=== PATIENT | female | born 1930 | race Caucasian/White ===

== ENCOUNTER 2018-03-22 19:23 | Inpatient (IN) | payer OTHER ==
--- OUTSIDE RECORDS SUMMARY | 2018-03-22 19:26 | XMS REPORT | Clinical Summary ---
:1930 Author Organization [facility] Address [address] [place] [address] Care Team Providers Name Role Phone Huber Multani MD Primary Care Provider Allergies Active Allergy Reactions Severity Noted Date Comments Codeine 06/15/2017 No pain medication Medications Medication Sig Dispensed Refills Start Date End Date Status warfarin (COUMADIN) 2.5 Take 2.5 mg by 0 Active MG tablet mouth daily. carvedilol (COREG) 12.5 Take 12.5 mg by 0 Active MG tablet mouth 2 (two) times a day with meals. losartan (COZAAR) 50 MG Take 50 mg by 0 Active tablet mouth daily. multivitamin with Take 1 tablet by 0 Active minerals tablet mouth daily. Active Problems Problem Noted Date Essential hypertension 06/15/2017 Abdominal aortic aneurysm (AAA) without rupture 06/15/2017 Chronic atrial fibrillation 06/15/2017 Encounters Date Type Specialty Care Team Description 06/15/2017 Office Visit Cardiology Bryon Ro MD Abdominal aortic aneurysm (AAA) without rupture (Primary Dx); Essential hypertension; Chronic atrial fibrillation after 03/21/2017 Social History Tobacco Use Types Packs/Day Years Used Date Former Smoker Cigarettes Smokeless Tobacco: Never Used Comments: quit 40yrs ago Alcohol Use Drinks/Week oz/Week Comments No Sex Assigned at Date Recorded Not on file Job Start Date Occupation Industry Not on file Not on file Not on file Travel History Travel Start Travel End No recent travel history available. Last Filed Vital Signs Vital Sign Reading Time Taken Blood Pressure 213/84 06/15/2017 2:52 PM CDT Pulse 67 06/15/2017 2:52 PM CDT Temperature - - Respiratory Rate - - Oxygen Saturation - - Inhaled Oxygen Concentration - - Weight 62.6 kg (138 lb) 06/15/2017 2:52 PM CDT Height - - Body Mass Index - - Plan of Treatment Health Maintenance Due Date Last Done Comments SHINGLES VACCINES (1 of 2) 07/04/1979 PNEUMOCOCCAL POLYSACCHARIDE VACCINE AGE 65 AND OVER 1994 PNEUMOCOCCAL-13 1994 INFLUENZA VACCINE 10/13/2017 Procedures Procedure Name Priority Date/Time Associated Diagnosis Comments ECG 12-LEAD Routine 06/15/2017 1:58 PM Essential hypertension Results for this CDT procedure are in the results section. after 03/21/2017 Results ECG 12 lead (06/15/2017 1:58 PM CDT) Ventricular rate 66 [facility] Atrial rate 68 [facility] QRSD interval 78 [facility] QT interval 408 [facility] QTC interval 427 [facility] QRS axis 1 -75 [facility] T wave axis 81 [facility] EKG impression Atrial fibrillation-Left axis [facility] deviation-Anteroseptal infarct , age undetermined-Abnormal ECG-No previous ECGs available- Performing Organization Address City/State/Zipcode Phone Number [facility] [address] [place] [address] after 03/21/2017 Insurance Payer Benefit Plan / Group Subscriber ID Type Phone Address MEDICARE MEDICARE PART A AND B xxxxxxxxxx Medicare [place], [place] Advance Directives Patient has advance care planning documents on file. For more information, please contact:Johnathon Hernandez[address] [place] [address]
[2018-03-22] MEDS ORDERED: ACETAMINOPHEN 500 MG TAB PO PRN (20:05)
[2018-03-22] MEDS ORDERED: DIPHENHYDRAMINE 25 MG TAB/CAP PO PRN (20:05)
[2018-03-22] MEDS ORDERED: PANTOPRAZOLE 40 MG INJ IVP ONE (20:06)
[2018-03-22] MEDS ORDERED: SODIUM CHLORIDE 0.9% 10ML INJ IV PRN (20:06)
[2018-03-22 21:02] LABS: Absolute Lymphocytes (CBC) 2.1 K/uL (0.7-4.9); Absolute Monocytes 0.6 K/uL (0.1-1.3); Absolute Neutrophil 1.8 K/uL (1.8-8.0); Basophils % 0.8 % (0-1.3); Eosinophils % 4.2 % (0-4.4); Hematocrit 24.1 % (36.0-45.0); Lymphocytes % 44.4 % (15.3-44.8); MPV 8.4 fL (7.6-11.3); Monocytes % 12.6 % (3.3-12.3); RBC Red Blood Cell Count 3.18 M/uL (3.86-4.86)
[2018-03-22 21:33] LABS: Protime INR 1.39
[2018-03-22] MEDS: METOPROLOL TAR 50 MG TAB PO SCH (21:42)
[2018-03-22] MEDS: NA CHLORIDE 0.9% 1,000 ML IV SCH (21:43)
[2018-03-22 21:45] LABS: Albumin 3.3 g/dL (3.4-5.0); Bilirubin Total 0.3 mg/dL (0.2-1.0); Ferritin 11.1 ng/mL (8-388); Magnesium 2.1 mg/dL (1.8-2.4); Potassium 4.4 mmol/L (3.5-5.1); Protein, Total 7.4 g/dL (6.4-8.2)
--- NOTE | 2018-03-23 03:23 | HP ---
Date of Admission: 03/22/2018 Reason For Admission: Anemia. History Of Present Illness: An 87-year-old female patient who had outpatient blood work done yesterday, and today her hemoglobin was reported to be 6.4. So , the patient was contacted with these results and was advised to get admitted to the hospital. Her family took her to the hospital this evening per recommendation and the patient was admitted to the hospital. I went to check on her. The patient's granddaughter was with her at bedside. She denies any blood in stool. She has some vague abdominal discomfort, some constipation. Her appetite has been poor and over period of time she is slowly losing weight. She lives at home by herself and today family reported that she is having some trouble swallowing also. She denies any black stool, blood in stool, blood in urine. No hematemesis. Patient is symptomatic from this anemia, she has weakness, tiredness and feels sleepy more than usual. Allergies: CODEINE, DIAZEPAM, DEMEROL, MORPHINE. Medications: Warfarin which is being managed by Dr. Crowder and takes 4 mg daily as the patient's family informs me, vitamin D 1000 units 2 times a day, vitamin B12 500 mcg daily, metoprolol 25 mg 2 times a day, losartan 50 mg p.o. daily. Review of Systems: Constitutional: Weight loss. GI: As mentioned above. All other systems reviewed and negative. Past Medical History: Significant for pancreatic cyst, abdominal aortic aneurysm, atrial fibrillation, hypertension, chronic anticoagulation therapy, hyperlipidemia, diverticulosis, breast cancer. Past Surgical History: Left rotator cuff repair in 2000, appendectomy, cholecystectomy, hysterectomy, knee replacement and right breast mastectomy due to breast cancer. Family History: Not pertinent. Social History: Negative. Physical Examination: Vital signs: Initial temperature 98.2, pulse 93, respiratory rate 17, blood pressure 156/105, height 5 feet 3 inches, weight 131 pounds. General: Awake, alert, oriented, not in distress. HEENT: Head atraumatic, normocephalic. Conjunctivae nonerythematous. Sclerae white. Mouth, no thrush or edema noted. Ears/Nose, no mass, lesion, discharge noted. Neck: Supple. No JVD, lymph nodes, bruit, thyromegaly noted. Lungs: Bilateral good equal air entry. Clear to auscultation. No rhonchi. No rales. Heart: Normal heart sounds, no murmur or gallop. Abdomen: Soft. Some mild tenderness present. No rebound tenderness. No distention. Bowel sounds normoactive. No hepatosplenomegaly. Extremities: Trace leg edema. No calf tenderness. Skin: No rash, ulcer, cellulitis. Lymphatics: No lymph node enlargement in neck, supraclavicular, infraclavicular region. Neuro: No focal neurological deficit. Chest: Unremarkable. External Genitalia: Deferred. Rectal: Deferred. Laboratory Data: White count 4.7, hemoglobin 7.1, platelets 164. INR 1.39. Sodium 142, potassium 4.4, chloride 108, bicarb 26, BUN 17, creatinine 1.19, glucose 101, total iron 14, TIBC 444, ferritin 11.1, B12 of 345, folic acid level pending. Liver enzymes unremarkable. Impression: 1. Anemia. 2. Chronic atrial fibrillation. 3. Hypertension. 4. Weight loss. 5. Dysphagia. 6. Osteoarthritis, multiple sites. 7. Hyperlipidemia. 8. Diverticulosis. 9. Breast cancer. 10. Vitamin D deficiency. 11. Abdominal aortic aneurysm. Plan: Admit the patient to hospital for further evaluation and management of this problem. The patient is appropriate for inpatient and is expected to spend 2 midnights in hospital. We will continue her home medications per order , give her IV fluid per order. SCD was ordered for DVT prophylaxis. We will go ahead and start to make arrangements for 2 units of packed red cell blood transfusion for this symptomatic severe anemia. Stool for guaiac was ordered. We will consult cda teacher, Dr. Pruitt and tomorrow I will order a chest x-ray and CAT scan of abdomen. We will get post transfusion hemoglobin and then decide if any further blood transfusion is necessary or not. We will give IV Protonix. Advanced directives discussed with the patient in presence of her granddaughter and the patient informed me clearly in the event of cardiopulmonary arrest she does not want any heroic measures like CPR, defibrillation or ventilator support and DNR order was written in the chart. SIMONE/MODL Voice ID: [id number]
[2018-03-23] MEDS ORDERED: INFLUENZA VACCINE (for 3y+) 0.5 ML DOSE IMVAC ONE (08:00)
[2018-03-23] MEDS: PANTOPRAZOLE 40 MG INJ IVP SCH (09:00)
--- NOTE | 2018-03-23 10:21 | RAD REPORT ---
EXAM DESCRIPTION: RAD - Chest Pa And Lat (2 Views) - 03/23/2018 10:15 am CLINICAL HISTORY: weight loss Chest pain. COMPARISON: Chest Pa And Lat (2 Views) dated 05/30/2016; Chest Pa And Lat (2 Views) dated 03/23/2016 FINDINGS: Emphysematous changes are present. Trace right pleural effusion. The heart is mildly moder ately enlarged. Aortic atherosclerosis. No displaced fractures. Right axillary marcia dissection clips . IMPRESSION: Diffuse COPD. Trace right pleural fluid.
--- NOTE | 2018-03-23 10:51 | RAD REPORT ---
EXAM DESCRIPTION: CTAbdomen Pelvis W Contrast - 03/23/2018 10:21 am CLINICAL HISTORY: Abdominal pain. abd pain, weight loss COMPARISON: Abdomen Pelvis W Contrast dated 05/12/2017; CT ABD PELVIS W CONTRAST dated 10/13/2007 TECHNIQUE: Biphasic CT imaging of the abdomen and pelvis was performed with 100 ml non-ionic IV cont rast. All CT scans are performed using dose optimization technique as appropriate and may include automated exposure control or mA/KV adjustment according to patient size. FINDINGS: Small bilateral pleural effusions are noted. The inferior lung bases are emphysematous.Mil d cardiomegaly. Diffuse fatty liver is seen. The spleen, adrenal glands are within normal limits. 26 mm benign-appear ing cyst is present right kidney. 3 mm stone is present inferior calyx right kidney. No significant h ydronephrosis. Pancreas appears mildly atrophic. Small cystic area again seen in the body of the pancreas. The size of the cystic lesions measures approximately 20 x 15 mm, appearing slightly increased in size since t he comparative study (previously 20 x 12 mm). No bowel obstruction, free air, intra-abdominal free fluid or abscess. Infrarenal abdominal aortic an eurysm is present measuring 4.8 cm in anterior-posterior dimension. This represents no significant ch roger in size since comparative study. The appendix appears absent. No evidence of significant lymphad enopathy. Lumbar postsurgical changes are evident. Mild fluid is seen dependently in the pelvis. IMPRESSION: Hypodense pancreatic body lesions have mildly increased in size since the comparative st udy. 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 Stable infrarenal abdominal aortic aneurysm. Nonobstructing inferior right renal stone. Small bilateral pleural effusions.
[2018-03-23] MEDS: METOPROLOL TAR 50 MG TAB PO SCH ×2 (12:54→21:26)
[2018-03-23] MEDS ORDERED: MAGNESIUM CITRATE 300 ML BOT PO SCH (13:00)
[2018-03-23] MEDS: METOCLOPRAMIDE 10 MG/2mL INJ IV SCH ×3 (13:46→23:31)
[2018-03-23] MEDS ORDERED: GOLYTELY 4000 ML PO SCH (14:00)
--- NOTE | 2018-03-24 02:03 | PN ---
Date of Progress Note: 03/23/2018 Subjective: The patient was seen this morning for followup. She was sitting in chair, getting her s econd unit of blood transfusion. Her son was present with her at bedside. No new complaints or prob lems reported overnight. Objective: Vital Signs: Reviewed. HEENT Examination: Unremarkable. Lungs: Clear to auscultation. Heart: Sounds normal. Abdomen: Soft. Bowel sounds normal. No guarding, rigidity, tenderness, or distention. Extremity Exam: No leg edema. Impression: 1.Anemia. 2.Pancreatic mass. 3.Abdominal aortic aneurysm. 4.Atrial fibrillation. 5.Hypertension. Plan: We will continue current antihypertensive medication per order. Follow up on hemoglobin and t hen decide if more blood transfusion is needed or not. Consult tab machine operator, Dr. Pruitt, for E GD and colonoscopy. The patient has some dysphagia problem, is losing weight, and has anemia, so we need to make sure there is no underlying GI malignancy or any other explanation for her anemia proble m. Stool occult blood is pending. CAT scan of the abdomen done today, results reviewed. Pancreatic mass has gotten slightly larger than what it was last year. An abdominal aortic aneurysm is stable. I will have to review my office record as the patient was asked to see subspecialist for this new bethany soria. My recollection is probably that she did not want to follow up with any subspecialist. Chest x-ray was unremarkable today. SIMONE/MODL Voice ID: [id number] Report ID: [id number]
[2018-03-24] MEDS: NA CHLORIDE 0.9% 1,000 ML IV SCH (06:38)
[2018-03-24] MEDS: METOPROLOL TAR 50 MG TAB PO SCH ×2 (09:00→22:00)
[2018-03-24] MEDS: PANTOPRAZOLE 40 MG INJ IVP SCH (09:04)
[2018-03-24] MEDS: Ringers Lactate 0 ML IV ONE ×2 (10:28→11:22)
[2018-03-24] MEDS ORDERED: PROPOFOL 200 MG/20 ML VIAL IV ONE (11:37)
--- NOTE | 2018-03-24 12:25 | ENDO RPT ---
[address], [address] EGD PROCEDURE REPORT EXAM DATE: 03/24/2018 PATIENT NAME: Susan Villalta MR#: [id number] BIRTHDATE: 1930 ATTENDING: Shahid Pruitt Dr STATUS: inpatient - [facility] HAND BINDER CUTTER: Shreya Weller, Elva Weller, and Génesis Monson RN INDICATIONS: The patient is a 87 yr old Female here for an EGD due to iron deficiency anemia PROCEDURE PERFORMED: EGD with biopsy MEDICATIONS: Per Anesthesia. TOPICAL ANESTHETIC: none CONSENT: The patient understands the risks and benefits of the procedure and understands that these risks include, but are not limited to: sedation, allergic reaction, infection, perforation and/or bleeding. Alternative means of evaluation and treatment include, among others: physical exam, x-rays, and/or surgical intervention. The patient elects to proceed with this endoscopic procedure. DESCRIPTION OF PROCEDURE: During intra-op preparation period all mechanical medical equipment was checked for proper function. Hand hygiene and appropriate measures for infection prevention was taken. Procedure, possible complications, and alternatives including but not limited to the possibility of bleeding, perforation, tear, infection, sepsis, need for surgery, need for blood transfusion, and anesthesia related complications were explained to the patient. After the risks, benefits and alternatives of the procedure were thoroughly explained, Informed consent was verified, confirmed and timeout was successfully executed by the treatment team. The patient was placed in the left lateral position. The patient was anesthetized with topical anesthesia. Through the anesthetized oropharyngeal area, the scope was passed without any difficulty. The EG-[id number] ([id number]) endoscope was introduced through the mouth and advanced to the second portion of the duodenum. Retroflexed views revealed a small hiatal hernia. The gastroscope was then slowly withdrawn and removed. A small hiatal hernia was found Moderate Atrophic gastritis was found in the total stomach. Multiple biopsies were obtained and sent to pathology. Small bowel biopsies obtained with history of iron deficiency anemia. ADVERSE EVENTS: There were no complications. IMPRESSIONS: 1. Small hiatal hernia 2. Moderate atrophic gastritis in the total stomach, s/p biopsies 3. Small bowel biopsies obtained with history of iron deficiency anemia RECOMMENDATIONS: 1. await biopsy results 2. acid suppression therapy REPEAT EXAM: Shahid Pruitt Dr eSigned: Shahid Pruitt Dr 03/24/2018 12:15 PM cc: Huber Multani CPT CODES: ICD9 CODES: PATIENT NAME: Susan Villalta MR#: [id number]
--- NOTE | 2018-03-24 12:28 | ENDO RPT ---
[address], [address] COLONOSCOPY PROCEDURE REPORT EXAM DATE: 03/24/2018 PATIENT NAME: Susan Villalta MR #: [id number] BIRTHDATE: 1930 ATTENDING: Shahid Pruitt Dr STATUS: inpatient - [facility] VISITING PROFESSOR: Shreya Weller, Elva Weller, and Génesis Monson RN INDICATIONS: The patient is a 87 yr old Female here for a colonoscopy due to iron deficiency anemia PROCEDURE PERFORMED: Colonoscopy with biopsy and Colonoscopy with biopsy - cold polypectomy MEDICATIONS: Per Anesthesia. ESTIMATED BLOOD LOSS: None CONSENT: The patient understands the risks and benefits of the procedure and understands that these risks include, but are not limited to: sedation, allergic reaction, infection, perforation and/or bleeding. Alternative means of evaluation and treatment include, among others: physical exam, x-rays, and/or surgical intervention. The patient elects to proceed with this endoscopic procedure. DESCRIPTION OF PROCEDURE: During intra-op preparation period all mechanical medical equipment was checked for proper function. Hand hygiene and appropriate measures for infection prevention was taken. Procedure, possible complications, alternatives including, but not limited to possibility of bleeding, perforation, tear, infection, sepsis, need for surgery, need for blood transfusion, were explained to the patient. After the risks, benefits and alternatives of the procedure were thoroughly explained, Informed consent was verified, confirmed and timeout was successfully executed by the treatment team. The patient was placed in the left lateral position. A digital rectal exam was performed and revealed several skin tags and A digital rectal exam was performed and revealed external hemorrhoids. After appropriate level of anesthesia, the scope was passed. The EG-[id number] ([id number]) and [id number] ([id number]) endoscope was introduced through the anus and advanced to the terminal ileum which was intubated for a short distance. The quality of the prep was good. The instrument was then slowly withdrawn as the colon was fully examined. Scope withdrawal time was 8 minutes. COLON FINDINGS: A 1/3 circumferential, non-obstructing and ulcerated mildly bleeding malignant tumor/mass, measuring 3 cm in length, was seen in the ascending colon. Multiple biopsies of the lesion were performed using cold forceps. A sessile polyp measuring 4 mm in size was found in the transverse colon. A polypectomy was performed with cold forceps. Small internal and external hemorrhoids were found. Retroflexed views revealed small hemorrhoids. The scope was then completely withdrawn from the patient and the procedure terminated. ADVERSE EVENTS: There were no complications. IMPRESSIONS: 1. 3 cm mildly bleeding malignant tumor/mass in the mid to distal ascending colon; multiple biopsies of the lesion were performed 2. 4 mm sessile polyp in the transverse colon; polypectomy was performed with cold forceps 3. Small internal and external hemorrhoids 4. Intubation to terminal ileum RECOMMENDATIONS: 1. await biopsy results 2. avoid NSAIDS for 2 weeks 3. surgery 4. once pathology confirms neoplasia, oncology consult RECALL: Return in 1 year(s) for Colonoscopy. Shahid Pruitt Dr eSigned: Shahid Pruitt Dr 03/24/2018 12:27 PM cc: Huber Multani CPT CODES: ICD9 CODES: PATIENT NAME: Susan Villalta MR#: [id number]
[2018-03-25 06:04] LABS: Absolute Lymphocytes (CBC) 1.4 K/uL (0.7-4.9); Absolute Monocytes 0.6 K/uL (0.1-1.3); Absolute Neutrophil 2.7 K/uL (1.8-8.0); Basophils % 0.9 % (0-1.3); Eosinophils % 2.4 % (0-4.4); Hematocrit 31.3 % (36.0-45.0); Lymphocytes % 28.2 % (15.3-44.8); MPV 8.5 fL (7.6-11.3); RBC Red Blood Cell Count 3.97 M/uL (3.86-4.86)
[2018-03-25 06:15] LABS: Magnesium 1.8 mg/dL (1.8-2.4); Potassium 3.8 mmol/L (3.5-5.1)
[2018-03-25] MEDS ORDERED: POTASSIUM CL SA 10 MEQ TAB PO ONE (06:26)
[2018-03-25] MEDS ORDERED: MAGNESIUM SULFATE 1 gm IVPB 1 GM/100 ML BAG IV ONE (06:26)
[2018-03-25 09:00] LABS: Blood Morphology Comment NOTED (NOT SEEN); Platelet Estimate DECR; Urine White Blood Cell Casts OK
[2018-03-25] MEDS ORDERED: HOME MED 1 EA UNK (Losartan Potassium [Losartan Potassium] 100 MG) PO SCH (09:00)
[2018-03-25] MEDS ORDERED: LOSARTAN POTASSIUM 50 MG TABLET PO SCH (09:00)
[2018-03-25 09:01] LABS: Anisocytosis 1+
--- NOTE | 2018-03-25 09:07 | PN ---
Date of Progress Note: 03/24/2018 Subjective: The patient was seen this morning for followup and I saw her this evening as well. This morning, when I saw her, she denied any complaints. Objective: Vital Signs: Reviewed. HEENT Examination: Unremarkable. Lungs: Clear to auscultation. Heart: Sounds normal. Abdomen: Soft. Bowel sounds normal. No guarding, rigidity, tenderness, or distention. Extremity Exam: No leg edema. Laboratory Data: Last hemoglobin was 10.3. The patient had EGD and colonoscopy done today and Dr. Pruitt did call me to discuss results. Impression: 1. Anemia due to gastrointestinal blood loss. 2. Atrial fibrillation. 3. Hypertension. 4. Weight loss. 5. Rule out colon cancer. 6. Hiatal hernia. 7. Atrophic gastritis. Plan: Dr. Pruitt called and informed me about findings of EGD and colonoscopy, and family is aware of this hopefully by next week, we should have the biopsy results back, but the patient was found to have mass in the ascending colon suspicious for colon cancer. We will go ahead and repeat blood work tomorrow morning. Depending on the patient's condition and blood test results, our plan is to discharge her to go home tomorrow, and once we have the biopsy results, then plan is to refer her to [facility]. The patient has evaluation done at [facility] for her pancreatic mass last year, and CAT scan done during this hospitalization shows increase in size of this mass, so she will need to go back there for further evaluation along with that. Once we get the biopsy results on this ascending colon mass, we will make the referral as we are concerned about the colon cancer. Details of plan of treatment discussed with the patient and family member this evening. I also informed the patient and family members that the patient should not take any warfarin anymore because of this GI blood loss anemia problem. SIMONE/MODL Voice ID: [id number] Report ID: [id number] VERONICA
[2018-03-25] MEDS: METOPROLOL TAR 50 MG TAB PO SCH (09:40)
[2018-03-25] MEDS: PANTOPRAZOLE 40 MG INJ IVP SCH (09:42)
--- NOTE | 2018-04-04 03:53 | DS ---
Date of Discharge: 03/25/2018 Disposition: Discharged to go home. Physical Examination: HEENT: Unremarkable. Lungs: Clear to auscultation. Heart: Sounds normal. Abdomen: Soft. Bowel sounds normal. No guarding, rigidity, tenderness, or distention. Extremities: No leg edema. Discharge Medications And Order: 1.Continue prior home medication except stop warfarin. 2.Take Hemocyte Plus 1 tablet by mouth daily. 3.Come to office for nonfasting blood test to be done on April 04, April 11 and April 18, 2018 and follow up at my office on April 13, 2018 at 10 a.m. Laboratory Data: Labs done during this hospitalization: Initial white count 4.7, hemoglobin 7.1, pl atelets 164. After blood transfusion, hemoglobin came up to 10.5 and last hemoglobin on the day of d ischarge was 9.9, platelets 132, white count 4.9. Her INR when she came in was 1.39. Her chemistry when she came in; sodium 142, potassium 4.4, chloride 108, bicarb 26, BUN 17, creatinine 1.19, glucos e 101. Liver function tests unremarkable. CEA 1.8. B12 of 345, folic acid more than 1000. Procedures: Procedures done during this hospitalization include EGD and colonoscopy. EGD showed a s mall hiatal hernia, moderate atrophic gastritis. Colonoscopy showed a 3 cm mass in the ascending col on and biopsy came back positive for adenocarcinoma. There was another 4 mm polyp in transverse colo n, small internal and external hemorrhoid. Hospital Course: An 87-year-old female patient who was admitted to the hospital as a direct admissio n after her outpatient routine blood work revealed hemoglobin of 6.4. The patient was contacted, was requested to come to the hospital. After she was admitted to the hospital, we did repeat blood work. Hemoglobin came back 7.1. Two units of PRBC blood transfusion was ordered for her and GI consultat ion was requested from Dr. Pruitt. The patient takes warfarin which is being managed by her cardiolo gist, Dr. Crowder in [place]. After this significant anemia problem, it was recommended for her to discontinue warfarin completely and we did not give any warfarin during this hospitalization. Dr. Harini delgadillo saw her from GI, did EGD and colonoscopy with findings as mentioned above. Details were discuss ed with the patient's family members. The patient's CAT scan had shown a pancreatic mass which appea rs to be larger than what it was before and after the last CT scan, the patient did go to [facility] for evaluation on this pancreatic mass, but she has not returned back for any further followup or te sting. So with this in mind, we will have the patient follow up at [facility] on outpatient basis f or this colon cancer as well as pancreatic mass and my office will initiate this referral and all the se details were discussed with family members. The patient and family both were advised not to take any warfarin. Final Diagnoses: 1.Anemia due to chronic gastrointestinal blood loss. 2.Colon cancer, ascending colon. 3.Hiatal hernia. 4.Chronic atrophic gastritis. 5.Chronic atrial fibrillation. 6.Hypertension. 7.Weight loss. 8.Dysphagia. 9.Osteoarthritis, multiple sites. 10.Breast cancer. 11.Hyperlipidemia. 12.Diverticulosis. 13.Vitamin D deficiency. 14.Abdominal aortic aneurysm. SIMONE/MODL Voice ID: [id number] Report ID: [id number]
== END 2018-03-25 14:52 | disposition home or self-care (01) | DRG 378 ==
LOC: 4TH 19:23
PROVIDERS: ADMIT Internal Medicine; ATTEND Internal Medicine
PROC: 30233N1 Transfusion of Nonautologous Red Blood Cells into Peripheral Vein, Percutaneous Approach (ICD-10-PCS; 2018-03-23)
PROC: 0DBK8ZX Excision of Ascending Colon, Via Natural or Artificial Opening Endoscopic, Diagnostic (ICD-10-PCS; 2018-03-24)
PROC: 0DBL8ZX Excision of Transverse Colon, Via Natural or Artificial Opening Endoscopic, Diagnostic (ICD-10-PCS; 2018-03-24)
PROC: 0DB68ZX Excision of Stomach, Via Natural or Artificial Opening Endoscopic, Diagnostic (ICD-10-PCS; principal; 2018-03-24 11:00)
PROC: 0DB88ZX Excision of Small Intestine, Via Natural or Artificial Opening Endoscopic, Diagnostic (ICD-10-PCS; 2018-03-24 11:00)
DX: K92.2 Gastrointestinal hemorrhage, unspecified (principal); C78.5 Secondary malignant neoplasm of large intestine and rectum; D50.0 Iron deficiency anemia secondary to blood loss (chronic); I48.2 Chronic atrial fibrillation; Z79.01 Long term (current) use of anticoagulants; R63.4 Abnormal weight loss; R13.10 Dysphagia, unspecified; M15.9 Polyosteoarthritis, unspecified; E78.5 Hyperlipidemia, unspecified; K57.90 Diverticulosis of intestine, part unspecified, without perforation or abscess without bleeding; C50.919 Malignant neoplasm of unspecified site of unspecified female breast; E55.9 Vitamin D deficiency, unspecified; I71.4 Abdominal aortic aneurysm, without rupture; Z66 Do not resuscitate; K44.9 Diaphragmatic hernia without obstruction or gangrene; K29.40 Chronic atrophic gastritis without bleeding; K64.8 Other hemorrhoids; K64.4 Residual hemorrhoidal skin tags; Z90.11 Acquired absence of right breast and nipple
CPT/HCPCS: 36415; 71046; 74177; 80048; 80053; 82378; 82607; 82728; 82747; 83540; 83735; 84466; 85014; 85018; 85025; 85610; 85730; 86850; 86900; 86901; 88305; 88312; C9113; J2704; J2765; J3475; J7030; P9016; Q9967

== ENCOUNTER 2018-05-06 10:37 | Inpatient (IN) | payer OTHER ==
--- OUTSIDE RECORDS SUMMARY | 2018-05-06 10:39 | XMS REPORT | Clinical Summary ---
:1930 Author Organization [facility] Address [address] [place] [address] Care Team Providers Name Role Phone Huber [...] Dx); Essential hypertension; Chronic atrial fibrillation after 05/05/2017 Social History Tobacco Use Types Packs/Day Years [...] Due Date Last Done Comments SHINGLES VACCINES (#1) 07/04/1979 65+ PNEUMOCOCCAL VACCINE (1 of 2 - PCV13) 1994 PNEUMOCOCCAL POLYSACCHARIDE VACCINE AGE 65 AND OVER 1994 INFLUENZA VACCINE 10/13/2017 Procedures Procedure Name Priority Date/Time Associated Diagnosis Comments ECG 12-LEAD Routine 06/15/2017 1:58 PM Essential hypertension Results for this CDT procedure are in the results section. after 05/05/2017 Results ECG 12 lead (06/15/2017 1:58 PM [...] available- Performing Organization Address City/State/Zipcode Phone Number [facility] [address] [place] [address] after 05/05/2017 Insurance Payer Benefit Plan / Group Subscriber ID Type Phone Address MEDICARE MEDICARE PART A AND B xxxxxxxxxx Medicare [place], [place] Advance Directives Patient has advance care planning documents on file. For more information, please contact:Diego [address] [place] [address]
[2018-05-06 12:19] LABS: Absolute Lymphocytes (CBC) 1.1 K/uL (0.7-4.9); Absolute Monocytes 0.7 K/uL (0.1-1.3); Absolute Neutrophil 6.3 K/uL (1.8-8.0); Basophils % 0.3 % (0-1.3); Eosinophils % 0.2 % (0-4.4); Hematocrit 30.5 % (36.0-45.0); Lymphocytes % 13.8 % (15.3-44.8); MPV 8.4 fL (7.6-11.3); Monocytes % 8.8 % (3.3-12.3); RBC Red Blood Cell Count 3.52 M/uL (3.86-4.86)
[2018-05-06 12:20] LABS: Protime INR 1.04
[2018-05-06 12:30] LABS: Albumin 3.1 g/dL (3.4-5.0); Bilirubin Direct 0.2 mg/dL (0-0.2); Bilirubin Total 0.5 mg/dL (0.2-1.0); Potassium 4.2 mmol/L (3.5-5.1); Protein, Total 6.8 g/dL (6.4-8.2)
[2018-05-06 13:19] LABS: Anisocytosis 2+; Blood Morphology Comment NOTED (NOT SEEN); Platelet Estimate ADEQ
--- NOTE | 2018-05-06 13:39 | RAD REPORT ---
EXAM DESCRIPTION: RAD - Abdomen 1 View (KUB) - 05/06/2018 1:26 pm CLINICAL HISTORY: Abdominal pain, diarrhea COMPARISON: None. FINDINGS: No gastric dilatation. Several prominent small bowel loops are present. No free air or pne umatosis. Colon is not abnormally dilated. There is stool and contrast material present distending th e rectum. The hyperdense material in the rectum may be part of ingested medication. No suspicious ila cifications. Prominent bony degenerative changes are present. IMPRESSION: Prominent small bowel pattern without obstruction or free air. Findings are consistent w ith a nonspecific enteritis. No free air or pneumatosis identified.
[2018-05-06] MEDS ORDERED: NA CHLORIDE 0.9% 1,000 ML ONE (14:44)
--- NOTE | 2018-05-06 17:03 | ER ---
Nurse's Notes [facility] Name: uSsan Villalta Age: 87 yrs Sex: Female : 1930 Arrival Date: 05/06/2018 Time: 10:55 Bed 8 Private MD: Diagnosis: Diarrhea, unspecified;Dehydration Presentation: 05/06 10:55 Presenting complaint: EMS states: DIARRHEA SINCE TAKING LAXATIVE LAST PM. Transition of aj1 care: patient was not received from another setting of care. Onset of symptoms is unknown. Risk Assessment: Do you want to hurt yourself or someone else? Patient reports no desire to harm self or others. Initial Sepsis Screen: Does the patient meet any 2 criteria? No. Patient's initial sepsis screen is negative. Does the patient have a suspected source of infection? No. Patient's initial sepsis screen is negative. Care prior to arrival: IV initiated. 20 GA, in the left forearm, Glucose check: 143. 10:55 Method Of Arrival: EMS: [facility] aj1 10:55 Acuity: ROCHELLE 3 aj1 Triage Assessment: 10:59 General: Appears distressed, uncomfortable, slender, Behavior is cooperative, aj1 appropriate for age, anxious. Pain: Complains of pain in abdomen. EENT: No deficits noted. Neuro: Level of Consciousness is awake, alert, obeys commands, Oriented to person, place, time, situation, Appropriate for age. Cardiovascular: No deficits noted. Respiratory: Airway is patent Respiratory effort is even, unlabored, Respiratory pattern is regular, symmetrical. GI: Reports lower abdominal pain, upper abdominal pain, diarrhea. : No signs and/or symptoms were reported regarding the genitourinary system. Derm: No deficits noted. Musculoskeletal: Circulation, motion, and sensation intact. Range of motion: intact in all extremities. Historical: - Allergies: 10:59 Codeine; aj1 10:59 Demerol; aj1 10:59 Morphine; aj1 10:59 Tylenol-Codeine #3; aj1 10:59 Valium; aj1 - Home Meds: 10:59 losartan 50 mg oral tab 1 tab once daily [Active]; Hemocyte-Plus 106 mg iron- 1 mg oral aj1 cap 1 cap once daily [Active]; metoprolol tartrate 25 mg Oral tab 1 tab 2 times per day [Active]; - PMHx: 10:59 AAA; Atrial Fib; breast cancer; Hypertension; aj1 - Immunization history:: Adult Immunizations up to date. - Social history:: Smoking status: Patient/guardian denies using tobacco. - Ebola Screening: : Patient negative for fever greater than or equal to 101.5 degrees Fahrenheit, and additional compatible Ebola Virus Disease symptoms Patient denies exposure to infectious person Patient denies travel to an Ebola-affected area in the 21 days before illness onset No symptoms or risks identified at this time. Screenin:02 Abuse screen: Denies threats or abuse. Denies injuries from another. Nutritional aj1 screening: No deficits noted. Tuberculosis screening: No symptoms or risk factors identified. Fall Risk None identified. Assessment: 11:01 General: SEE TRIAGE NOTE. aj1 13:00 General: PT INCONTINENT TO DIARRHEAL STOOL. PROVIDER NOTIFIED. bp 15:50 Reassessment: PT UNABLE TO PROVIDE UOP OR STOOL SAMPLE 2/2 INCONTINENCE. PROVIDER AWARE.bp 19:10 General: Appears in no apparent distress. uncomfortable, Behavior is cooperative, tl2 appropriate for age, anxious. Pain: Complains of pain in abdomen, rectum. Neuro: Level of Consciousness is awake, alert, obeys commands, Oriented to person, place, time, situation. Cardiovascular: Denies chest pain. Respiratory: Airway is patent Respiratory effort is even, unlabored, Respiratory pattern is regular, symmetrical. GI: Reports diarrhea, hemorrhoids, incontinence. : Reports incontinence. Derm: Skin is fragile, Skin is pink, warm \T\ dry. Vital Signs: 10:59 BP 110 / 50; Pulse 70; Resp 16; Temp 98.9; Pulse Ox 100% ; Weight 58.51 kg; Height 5 aj1 ft. 5 in. (165.10 cm); 12:00 BP 128 / 66; Pulse 54; Resp 18; Pulse Ox 95% ; bp 13:50 BP 115 / 89; Pulse 95; Resp 16; Pulse Ox 100% ; bp 15:50 BP 123 / 61; Pulse 71; Resp 16; Pulse Ox 100% ; bp 19:36 BP 154 / 67; Pulse 62; Resp 18; Pulse Ox 99% on R/A; tl2 10:59 Body Mass Index 21.47 (58.51 kg, 165.10 cm) aj1 ED Course: 10:55 Patient arrived in ED. aj1 10:56 Triage completed. aj1 11:01 Arm band placed on. aj1 11:02 Patient has correct armband on for positive identification. Bed in low position. Call aj1 light in reach. Side rails up X2. Adult w/ patient. 11:05 Claudia Avilez, RN is Primary Nurse. aj1 11:10 EKG done, by cardiology technologist. reviewed by Toni Arteaga MD. at1 11:16 Aston Garsia NP is PHCP. pm1 11:16 Toni Arteaga MD is Attending Physician. pm1 11:37 Primary Nurse role handed off by Claudia Avilez RN bp 11:37 Jairon Neal RN is Primary Nurse. bp 13:25 X-ray completed. Portable x-ray completed in exam room. Patient tolerated procedure jw2 well. 17:02 Tamie Multani MD is Hospitalizing Provider. pm1 19:10 No provider procedures requiring assistance completed. Patient admitted, IV remains in tl2 place. 20 g L FA placed during previous shift. 20:14 Primary Nurse role handed off by Jairon Neal RN ed1 20:23 Cleaned of incontinence. tl2 Administered Medications: 14:45 Drug: NS 0.9% 500 ml Route: IV; Rate: bolus; Site: right forearm; bp 17:15 Follow up: IV Status: Completed infusion bp 14:45 Drug: NS 0.9% 1000 ml Route: IV; Rate: 100 ml/hr; Site: right forearm; bp 20:27 Follow up: IV Status: Infusion continued upon admission tl2 17:20 Drug: XANax Tablet 0.25 mg Route: PO; bp 17:42 Follow up: Response: No adverse reaction bp Outcome: 17:02 Decision to Hospitalize by Provider. pm1 19:10 Admitted to Med/surg accompanied by tech, via stretcher, room 218, with chart, Report tl2 called to AVINASH Arreaga 19:10 Condition: stable 19:10 Discharge instructions given to patient, Instructed on the need for admit. 20:27 Patient left the ED. tl2 Signatures: Claudia Avilez, AVINASH RN aj1 Lucia Anthony RN RN ed1 Elisa Kwon, field training agent EKG Tat1 Aston Garsia, LUCIANA CUSTOMER ENGAGEMENT SPECIALIST pm1 Radha Marin jw2 Génesis Mccoy RN RN tl2 Jairon Neal, RN RN bp
--- NOTE | 2018-05-06 17:04 | EDPHYS ---
Physician Documentation [facility] Name: Susan Villalta Age: 87 yrs Sex: Female : 1930 Arrival Date: 05/06/2018 Time: 10:55 Bed 8 Private MD: ED Physician Toni Arteaga HPI: 05/06 12:00 This 87 yrs old Female presents to ER via EMS with complaints of Diarrhea, pm1 General Weakness. 12:00 The patient presents to the emergency department with diarrhea, that is continuous. pm1 Onset: The symptoms/episode began/occurred yesterday. Possible causes: laxatives. The symptoms are aggravated by nothing. The symptoms are alleviated by nothing. Associated signs and symptoms: Pertinent negatives: abdominal pain, dysuria, fever, vomiting. Severity of symptoms: in the emergency department the symptoms are worse. The patient has experienced similar episodes in the past, a few times. Patient recently diagnosed with colon cancer about 1 month ago. Diagnosed by colonoscopy. Non treatable colon cancer per MD Stephenson. Patient DNR status. Patient takes laxatives once per week typically to treat constipation due to colon cancer. Took laxative two nights ago and has continuous diarrhea since. Patient with generalized weakness. Historical: - Allergies: 10:59 Codeine; aj1 10:59 Demerol; aj1 10:59 Morphine; aj1 10:59 Tylenol-Codeine #3; aj1 10:59 Valium; aj1 - Home Meds: 10:59 losartan 50 mg oral tab 1 tab once daily [Active]; Hemocyte-Plus 106 mg iron- 1 mg oral aj1 cap 1 cap once daily [Active]; metoprolol tartrate 25 mg Oral tab 1 tab 2 times per day [Active]; - PMHx: 10:59 AAA; Atrial Fib; breast cancer; Hypertension; aj1 - Immunization history:: Adult Immunizations up to date. - Social history:: Smoking status: Patient/guardian denies using tobacco. - Ebola Screening: : Patient negative for fever greater than or equal to 101.5 degrees Fahrenheit, and additional compatible Ebola Virus Disease symptoms Patient denies exposure to infectious person Patient denies travel to an Ebola-affected area in the 21 days before illness onset No symptoms or risks identified at this time. ROS: 12:00 Constitutional: Negative for fever, chills, and weight loss, Eyes: Negative for injury, pm1 pain, redness, and discharge, ENT: Negative for injury, pain, and discharge, Neck: Negative for injury, pain, and swelling, Cardiovascular: Negative for chest pain, palpitations, and edema, Respiratory: Negative for shortness of breath, cough, wheezing, and pleuritic chest pain. 12:00 : Negative for injury, bleeding, discharge, and swelling, MS/Extremity: Negative for injury and deformity, Skin: Negative for injury, rash, and discoloration, Neuro: Negative for headache, weakness, numbness, tingling, and seizure. 12:00 Abdomen/GI: Positive for diarrhea, Negative for abdominal pain, nausea and vomiting. 12:00 Back: Positive for chronic back pain from surgery 20 years ago. Exam: 12:00 Constitutional: This is a well developed, well nourished patient who is awake, alert, pm1 and in no acute distress. Head/Face: Normocephalic, atraumatic. Eyes: Pupils equal round and reactive to light, extra-ocular motions intact. Lids and lashes normal. Conjunctiva and sclera are non-icteric and not injected. Cornea within normal limits. Periorbital areas with no swelling, redness, or edema. ENT: Nares patent. No nasal discharge, no septal abnormalities noted. Tympanic membranes are normal and external auditory canals are clear. Oropharynx with no redness, swelling, or masses, exudates, or evidence of obstruction, uvula midline. Mucous membranes moist. Neck: Trachea midline, no thyromegaly or masses palpated, and no cervical lymphadenopathy. Supple, full range of motion without nuchal rigidity, or vertebral point tenderness. No Meningismus. Chest/axilla: Normal chest wall appearance and motion. Nontender with no deformity. No lesions are appreciated. Cardiovascular: Regular rate and rhythm with a normal S1 and S2. No gallops, murmurs, or rubs. Normal PMI, no JVD. No pulse deficits. Respiratory: Lungs have equal breath sounds bilaterally, clear to auscultation and percussion. No rales, rhonchi or wheezes noted. No increased work of breathing, no retractions or nasal flaring. Abdomen/GI: Soft, non-tender, with normal bowel sounds. No distension or tympany. No guarding or rebound. No evidence of tenderness throughout. Back: No spinal tenderness. No costovertebral tenderness. Full range of motion. Skin: Warm, dry with normal turgor. Normal color with no rashes, no lesions, and no evidence of cellulitis. MS/ Extremity: Pulses equal, no cyanosis. Neurovascular intact. Full, normal range of motion. 12:00 Neuro: Orientation: is normal, Motor: is normal, moves all fours. Vital Signs: 10:59 BP 110 / 50; Pulse 70; Resp 16; Temp 98.9; Pulse Ox 100% ; Weight 58.51 kg; Height 5 aj1 ft. 5 in. (165.10 cm); 12:00 BP 128 / 66; Pulse 54; Resp 18; Pulse Ox 95% ; bp 13:50 BP 115 / 89; Pulse 95; Resp 16; Pulse Ox 100% ; bp 15:50 BP 123 / 61; Pulse 71; Resp 16; Pulse Ox 100% ; bp 19:36 BP 154 / 67; Pulse 62; Resp 18; Pulse Ox 99% on R/A; tl2 10:59 Body Mass Index 21.47 (58.51 kg, 165.10 cm) aj1 MDM: 11:17 Patient medically screened. pm1 14:59 Data reviewed: vital signs. Data interpreted: Pulse oximetry: on room air is 100 %. pm1 Interpretation: normal. 15:16 Counseling: I had a detailed discussion with the patient and/or guardian regarding: the pm1 historical points, exam findings, and any diagnostic results supporting the discharge/admit diagnosis, lab results, radiology results. 16:07 Physician consultation: A Nerissa BRAVO was called at 16:07, was contacted at 16:07, Will pm1 call back. 17:04 Physician consultation: A Nerissa BRAVO regarding admission, patient's condition, would like pm1 medications started, Xanax 0.25 mg PO once now , in the emergency department to see patient at 16:50, DNR status, Continue IV fluids. 05/06 11:33 Order name: Basic Metabolic Panel pm1 05/06 11:33 Order name: CBC with Diff pm05/06 11:33 Order name: Creatinine for Radiology pm1 05/06 11:33 Order name: Hepatic Function pm05/06 11:33 Order name: Lipase pm05/06 11:33 Order name: Urine Microscopic Only pm05/06 11:33 Order name: PT-INR pm05/06 11:47 Order name: CDIFF pm05/06 11:47 Order name: Fecal Leukocyte Stain pm05/06 11:47 Order name: Ova And Parasites pm05/06 11:47 Order name: Stool Culture pm05/06 12:21 Order name: CBC with Automated Diff; Complete Time: 13:44 EDMS 05/06 12:23 Order name: Protime (+INR); Complete Time: 12:33 EDMS 05/06 12:24 Order name: Creatinine (Radiology Only); Complete Time: 12:33 EDMS 05/06 11:33 Order name: IV Saline Lock; Complete Time: 12:40 pm1 05/06 11:33 Order name: Labs collected and sent; Complete Time: 12:40 pm1 05/06 12:31 Order name: Basic Metabolic Panel; Complete Time: 12:33 EDMS 05/06 12:31 Order name: Liver (Hepatic) Function; Complete Time: 12:33 EDMS 05/06 12:31 Order name: Lipase; Complete Time: 12:33 EDMS 05/06 12:49 Order name: Abdomen 1 View (KUB) XRAY pm05/06 13:20 Order name: Manual Differential; Complete Time: 13:44 EDMS 05/06 13:40 Order name: RAD; Complete Time: 13:44 EDMS Administered Medications: 14:45 Drug: NS 0.9% 500 ml Route: IV; Rate: bolus; Site: right forearm; bp 17:15 Follow up: IV Status: Completed infusion bp 14:45 Drug: NS 0.9% 1000 ml Route: IV; Rate: 100 ml/hr; Site: right forearm; bp 20:27 Follow up: IV Status: Infusion continued upon admission tl2 17:20 Drug: XANax Tablet 0.25 mg Route: PO; bp 17:42 Follow up: Response: No adverse reaction bp Disposition: 05/06/18 17:02 Hospitalization ordered by Tamie Multani for Inpatient Admission. Preliminary diagnosis are Diarrhea, unspecified, Dehydration. - Bed requested for Telemetry/MedSurg (Inpatient). - Status is Inpatient Admission. tl2 - Condition is Stable. - Problem is new. - Symptoms have improved. UTI on Admission? No Addendum: 05/09/2018 07:01 Co-signature as Attending Physician, Toni Arteaga MD I agree with the assessment and k dr plan of care. Signatures: Dispatcher [employer] EDMS Claudia Avilez, RN RN aj1 Toni Arteaga MD MD [facility] Aston Garsia, LUCIANA DIAZO TECHNICIAN pm1 Génesis Mccoy RN RN tl2 Unique Lora RN RN df Jairon Neal RN RN bp Corrections: (The following items were deleted from the chart) 05/06 18:11 17:02 Hospitalization Ordered by A Nerissa BRAVO for Inpatient Admission. Preliminary df diagnosis is Diarrhea, unspecified; Dehydration. Bed requested for Telemetry/MedSurg (Inpatient). Status is Inpatient Admission. Condition is Stable. Problem is new. Symptoms have improved. UTI on Admission? No. pm1 20:27 18:11 05/06/2018 17:02 Hospitalization Ordered by A Nerissa BRAVO for Inpatient Admission. tl2 Preliminary diagnosis is Diarrhea, unspecified; Dehydration. Bed requested for Telemetry/MedSurg (Inpatient). Status is Inpatient Admission. Condition is Stable. Problem is new. Symptoms have improved. UTI on Admission? No. df
[2018-05-06] MEDS ORDERED: ALPRAZOLAM 0.25 MG TABLET ONE (17:50)
[2018-05-06] MEDS: NA CHLORIDE 0.9% 1,000 ML IV SCH (20:46)
[2018-05-07] MEDS: NA CHLORIDE 0.9% 1,000 ML IV SCH ×3 (04:14→16:46)
[2018-05-07 06:25] LABS: Absolute Lymphocytes (CBC) 1.1 K/uL (0.7-4.9); Absolute Monocytes 0.8 K/uL (0.1-1.3); Absolute Neutrophil 4.2 K/uL (1.8-8.0); Basophils % 0.5 % (0-1.3); Eosinophils % 4.9 % (0-4.4); Hematocrit 27.9 % (36.0-45.0); Lymphocytes % 17.3 % (15.3-44.8); MPV 7.7 fL (7.6-11.3); Monocytes % 12.4 % (3.3-12.3); RBC Red Blood Cell Count 3.16 M/uL (3.86-4.86)
[2018-05-07 06:37] LABS: Potassium 4.1 mmol/L (3.5-5.1)
--- NOTE | 2018-05-07 08:57 | EKG ---
Test Date: 2018-05-06 Test Time: 11:02:09 Production Or Plant Engineer: SHAISTA MEASUREMENT RESULTS: Intervals: Rate: 83 VT: QRSD: 84 QT: 384 QTc: 451 [place]: P: VT: QRS: 39 T: 80 INTERPRETIVE STATEMENTS: Atrial fibrillation Anteroseptal infarct, age undetermined Abnormal ECG Compared to ECG 05/21/2017 09:33:38 Left-axis deviation no longer present Myocardial infarct finding still present Electronically Signed On 05-07-18 08:57:20 EHS SPECIALIST by Emir Acosta
[2018-05-07] MEDS ORDERED: LOSARTAN POTASSIUM 50 MG TABLET PO SCH (09:00)
[2018-05-07] MEDS ORDERED: FE SULF/FA/VIT B COMP & C TAB PO SCH (09:00)
[2018-05-07] MEDS ORDERED: METOPROLOL XL 25 MG TAB PO SCH (09:00)
[2018-05-07] MEDS: HYDROCORTISONE ACETATE 25MG SUPP PR SCH ×2 (11:00→21:59)
[2018-05-07] MEDS: HEMOCYTE PLUS PO SCH (12:20)
[2018-05-07] MEDS: COZAAR 50 MG PO SCH (12:20)
[2018-05-07] MEDS: LOPRESSOR 25 MG PO SCH ×2 (12:21→21:59)
--- NOTE | 2018-05-07 14:03 | PN ---
Date of Progress Note: 05/07/2018 Subjective: The patient was seen this morning for followup, lying in bed, not in any distress. She appeared more comfortable this morning than yesterday in terms of anxiety. She still has some pain f rom her hemorrhoid and she had about 3-4 diarrhea stool last night, and once since she woke up this m orning by the time I saw her this morning. No nausea, no vomiting. Her granddaughter was present wi th her at bedside. Objective: Vital Signs: Reviewed. HEENT Examination: Unremarkable. Lungs: Clear to auscultation. Heart: Sounds normal. Abdomen: Soft. Bowel sounds normal. No guarding, rigidity, tenderness, distention. Extremities: No leg edema. Laboratory Data: White count 6.4, hemoglobin 8.9, platelets 132. Sodium 144, potassium 4.1, chlorid e 113, bicarb 27, BUN 22, creatinine 0.85, glucose 72. Impression: 1.Acute kidney injury. 2.Volume depletion. 3.Diarrhea. 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 5.Colon cancer. 6.Generalized weakness. 7.Hypertension. Plan: The patient's home medications will be continued including her antihypertensive medications. We will continue IV fluid and continue her current diet and we will consider to advance diet probably later today. Physical therapy to help ambulate the patient. Stool test was ordered for C. diff and culture which is pending. We will start her on some treatment for hemorrhoid using Anusol-HC rectal suppository twice a day and I did talk to patient's family member regarding consideration of hospice care upon discharge from the hospital as what I am afraid of the patient's condition is deterioratin g and it is going to continue to deteriorate with her colon cancer problem. At some point, we will h ave to worry about bowel obstruction, if her colon cancer continues to grow inside the lumen, then it definitely will result in that kind of situation. But even if it does not with her overall deterior ating health, she is appropriate for hospice care now and I have encouraged family to have some discu ssion this weekend and let me know what their decision is, so that way I can provide appropriate help upon discharge with referral for hospice care. SIMONE/MODL Voice ID: [id number] Report ID: [id number]
--- NOTE | 2018-05-07 15:08 | HP ---
Date of Admission: 05/06/2018 Chief Complaint: Diarrhea. History Of Present Illness: This is an 87-year-old female patient, who has colon cancer and recently had evaluation done at [facility] [place] and after further evaluation, she was told that she is not a cand idate for any kind of treatment and as a result of that, no more followup appointment scheduled at [facility]. The patient came to office with her family member, and we talked about it, and we discuss ed about possibility of hospice care at appropriate time in the future. She has some history of cons tipation and takes [id number] laxatives on a p.r.n. basis, and the patient reported that on the day she took Dulcolax 2 tablets for her constipation problem, which was Wednesday night and after she started having diarrhea, and this diarrhea has not stopped at all, and she is having anywhere between 10-15 watery stools, and this is resulting in hemorrhoid problem, and she is feeling extremel y weak, unable to get out of bed or ambulate, brought into emergency room by her family. After she w as evaluated in the ER, she was admitted to the hospital. I saw her in the emergency room. She was complaining of pain in her hemorrhoid area in the perirectal region, but she was also appearing very anxious. Her granddaughter was with her at bedside. One dose of alprazolam was ordered after I saw her to help with her anxiety problem. Medications: She takes Hemocyte plus 1 tablet daily, losartan 50 mg p.o. daily, and metoprolol 25 tw ice a day. Review of Systems: GI: As mentioned above. Constitutional: As mentioned above. All other systems reviewed and negative. Allergies: CODEINE, DIAZEPAM, DEMEROL, MORPHINE. Past Medical History: Significant for hypertension, pancreatic cyst, abdominal aortic aneurysm, atri al fibrillation, hypertension, hyperlipidemia, osteoarthritis, diverticulosis, breast cancer, and col on cancer, and anemia due to chronic GI blood loss from colon cancer. Past Surgical History: Significant for left rotator cuff repair in 2000, appendectomy, cholecystecto my, hysterectomy, knee replacement, right breast mastectomy due to breast cancer. Family History: Not pertinent. Social History: Negative for smoking or alcohol use. Physical Examination: Vital Signs: When she came into emergency room blood pressure 110/50, pulse 70, respiratory rate 16, temperature 98.9, weight 58.51 kg, height 5 feet 5 inches. General: The patient appeared in some distress due to pain as well as very anxious. Lying in bed on the right side in the emergency room. HEENT: Head atraumatic, normocephalic. Conjunctivae nonerythematous. Sclerae white. Mouth, no thr ush or edema noted. Ears/Nose, no mass, lesion, discharge noted. Neck: Supple. No JVD, lymph nodes, bruit, thyromegaly noted. Lungs: Bilateral good equal air entry. Clear to auscultation. No rhonchi. No rales. Heart: Normal heart sounds, no murmur or gallop. Abdomen: Soft, bowel sounds normal. No guarding, rigidity, tenderness, mass, hepatosplenomegaly, dis tention, or bruit noted. Extremities: No leg edema. No calf tenderness. Skin: No rash, ulcer, cellulitis. Lymphatics: No lymph node enlargement in neck, supraclavicular, infraclavicular region. Neuro: No focal neurological deficit. Chest: Unremarkable. External Genitalia: Deferred. Rectal: The patient has a hemorrhoid that appears to be thrombosed and very tender to touch. I did not perform a rectal exam, but I just gently her buttock and looked at it. There were 2 he morrhoids that they were outside the anal opening, they were very tender to touch. The patient was n oted to have dark green colored liquid stool present. Laboratory Data: White count 8.2, hemoglobin 9.8, platelets 184. Sodium 142, potassium 4.2, chlorid e 108, bicarb 27, BUN 29, creatinine 1.39, calcium 10.7. Liver function tests unremarkable. Impression: 1.Acute kidney injury. 2.Volume depletion. 3.Diarrhea. 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 5.Colon cancer. 6.Hypertension. 7.Atrial fibrillation. 8.Abdominal aortic aneurysm. 9.Pancreatic cyst. 10.Hyperlipidemia. 11.Diverticulosis. 12.Breast cancer. 13.Generalized weakness. 14.Debility. Plan: Admit the patient to hospital for further evaluation and management of this problem. The kaur ent is appropriate for inpatient and is expected to spend 2 midnights in hospital. We will go ahead and start her on IV fluid. Home medications will be continued per order. I will not give any medica tions for her diarrhea right now because I am concerned about such medication use causing more troubl e with constipation down the line, so we will see how she does by tomorrow and then we will decide if we need to use such medication or not. We will repeat blood work tomorrow morning, and the patient was advised not to use laxative that she used, which was Dulcolax, and we will have to consider diffe rent type of stool softener and laxative for her. We will have Physical Therapy try to help her with ambulation tomorrow. I did discuss advanced directives and DNR order was written in the chart per bethany mosley's decision. SIMONE/ALMA Voice ID: [id number]
[2018-05-07] MEDS ORDERED: LOPRESSOR 25 MG PO SCH (21:00)
[2018-05-08] MEDS: NA CHLORIDE 0.9% 1,000 ML IV SCH ×4 (03:33→21:46)
[2018-05-08] MEDS: ACETAMINOPHEN 500 MG TAB PO PRN ×2 (09:46→18:05)
[2018-05-08] MEDS: HYDROCORTISONE ACETATE 25MG SUPP PR SCH ×2 (09:47→21:37)
[2018-05-08] MEDS: COZAAR 50 MG PO SCH (09:48)
[2018-05-08] MEDS: LOPRESSOR 25 MG PO SCH ×2 (09:48→21:42)
[2018-05-08] MEDS: HEMOCYTE PLUS PO SCH (09:48)
--- NOTE | 2018-05-08 13:57 | PN ---
Date of Progress Note: 05/08/2018 Subjective: The patient was seen this morning for followup. She was lying in bed. Had 2 watery diarrhea stools during daytime yesterday, 2 at night time and 2 so far this morning. She is having pain in her rectum area secondary to hemorrhoid. No nausea, no vomiting. She is on clear liquid diet and is tolerating that well. Objective: Vital Signs: Reviewed. HEENT: Unremarkable. Lungs: Bilateral good equal air entry. Clear to auscultation. No rhonchi. No rales. Heart: Sounds normal. Abdomen: Soft. Bowel sounds normal. No guarding, rigidity, tenderness, distention. Extremities: No leg edema. Laboratory Data: Stool C. diff and culture result pending. Impression: 1. Volume depletion. 2. Dehydration. 3. Acute kidney injury. 4. Hypertension. 5. Colon cancer. 6. Generalized weakness. 7. Hemorrhoid, thrombosed. Plan: 1. We will go ahead and continue Anusol-HC rectal suppository per order. Advance her diet to regular diet. Continue current IV fluid, antihypertensive medication. We will follow up on stool test results once it is available. I had a long discussion with the patient's 2 granddaughters today and also talked to the patient about hospice care and family is agreeable to go home with the hospice care and they would like to use [facility] agency, so I have requested Social Service to go ahead and assist family and the patient with hospice care arrangements and once that arrangements gets completed, then we will be able to discharge her to go home with possibility of discharge in next 1 or 2 days. Her overall prognosis is poor and hospice diagnosis is colon cancer. The patient will need 24-hour care at home upon discharge and family will communicate with hospice agency and then decide if any other extra help is needed with other outside agency. Tylenol was ordered today for her rectal pain due to hemorrhoid. SIMONE/MODL Voice ID: [id number] Report ID: [id number] VERONICA
[2018-05-08] MEDS: HYDROCODONE/APAP 5/325 MG TAB PO PRN (21:45)
[2018-05-09] MEDS: HYDROCORTISONE ACETATE 25MG SUPP PR SCH ×3 (09:00→21:00)
[2018-05-09] MEDS: LOPRESSOR 25 MG PO SCH ×2 (09:00→21:05)
[2018-05-09] MEDS: NA CHLORIDE 0.9% 1,000 ML IV SCH ×2 (09:26→17:52)
[2018-05-09] MEDS: HEMOCYTE PLUS PO SCH (09:28)
[2018-05-09] MEDS: COZAAR 50 MG PO SCH (09:28)
[2018-05-09] MEDS: HYDROCODONE/APAP 5/325 MG TAB PO PRN ×2 (09:29→21:04)
--- NOTE | 2018-05-10 02:42 | PN ---
Date of Progress Note: 05/09/2018 Subjective: The patient was seen this morning for followup. She was feeling better this morning com pared to yesterday. Pain is under better control. Yesterday, we did start her on [place] for pain bec ause Tylenol was not helping. Her diarrhea has improved. Objective: Vital Signs: Reviewed. HEENT: Unremarkable. Lungs: Clear to auscultation. Heart: Sounds normal. Abdomen: Soft. Bowel sounds normal. No guarding, rigidity, tenderness, or distention. Extremities: No leg edema. Impression: 1.Volume depletion. 2.Diarrhea. 3.Colon cancer. 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 5.Hypertension. Plan: We will go ahead and continue current medications. Diet order, antihypertensive medication, a nd pain medication. Social Service will assist the patient and family with hospice care arrangements , and hopefully all the arrangements will be completed by tomorrow, and we will be able to discharge her once arrangement gets completed. Details were discussed with the patient and the patient's grand daughter this morning. SIMONE/MODL Voice ID: [id number] Report ID: [id number]
[2018-05-10] MEDS: NA CHLORIDE 0.9% 1,000 ML IV SCH (05:16)
[2018-05-10] MEDS: HEMOCYTE PLUS PO SCH (09:00)
[2018-05-10] MEDS: LOPRESSOR 25 MG PO SCH (09:00)
[2018-05-10] MEDS: HYDROCORTISONE ACETATE 25MG SUPP PR SCH (09:00)
[2018-05-10] MEDS: COZAAR 50 MG PO SCH (09:00)
--- NOTE | 2018-05-11 18:01 | DS ---
Date of Discharge: 05/10/2018 Disposition: Discharged to go home. Physical Examination: HEENT: Unremarkable. Lungs: Clear to auscultation. Heart: Sounds normal. Abdomen: Soft. Bowel sounds normal. No guarding, rigidity, tenderness, distention. Extremity: No leg edema. Discharge Medication And Instructions: 1.Continue all prior home medications. 2.Comfort care orders per hospice. 3.The patient to be admitted to hospice care with diagnosis of colon cancer. Hospital Course: The 87-year-old female patient who was admitted to the hospital with diarrhea probl em. Please see dictated H and P for more information. After the patient was evaluated in the emerge ncy room, she was admitted to the hospital with severe diarrhea problem resulting in volume depletion and extreme generalized weakness. The patient was admitted to the hospital with acute kidney injury and volume depletion. Her white count was normal at 8.2, hemoglobin 9.8, platelets 184. Sodium 142 , potassium 4.2, chloride 108, bicarb 27, BUN 29, creatinine was 1.39. IV fluid was started and her renal function improved. Diarrhea improved after a couple of days. She had lot of problem with hemo rrhoid and Anusol rectal suppository was started, and today she informed me that her pain from the he morrhoid has subsided completely. The patient has colon cancer for which she was evaluated at [facility] earlier this month, and she was told by MD Stephenson that she is not a candidate for any kind of treatment for her colon cancer. So, at appropriate time our plan was to consider hospice care and h er condition has deteriorated, and I am expecting her condition to continue to deteriorate and her li fe expectancy is less than 6 months if her disease continues to progress at expected rate. Details w ere discussed with the patient and the patient's family members and it was recommended for patient to be admitted to hospice care and after all the arrangements completed today, she was discharged to go home in stable condition. Overall, prognosis is poor. Final Diagnoses: 1.Acute kidney injury. 2.Volume depletion. 3.Hemorrhoids. 4.Diarrhea. 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 6.Colon cancer. 7.Hypertension. 8.Atrial fibrillation. 9.Pancreatic cyst. 10.Abdominal aortic aneurysm. 11.Hyperlipidemia. 12.Diverticulosis. 13.Breast cancer. 14.Generalized weakness. 15.Debility. SIMONE/MODL Voice ID: [id number] Report ID: [id number]
== END 2018-05-10 13:44 | disposition hospice, home (50) | DRG 683 ==
LOC: ER 10:37 → ERHOLD 17:37 → 2ND 19:59
PROVIDERS: ADMIT Internal Medicine; ATTEND Internal Medicine
DX: N17.9 Acute kidney failure, unspecified (principal); C18.9 Malignant neoplasm of colon, unspecified; K86.2 Cyst of pancreas; R19.7 Diarrhea, unspecified; Z66 Do not resuscitate; E86.9 Volume depletion, unspecified; D50.0 Iron deficiency anemia secondary to blood loss (chronic); I10 Essential (primary) hypertension; I48.91 Unspecified atrial fibrillation; I71.4 Abdominal aortic aneurysm, without rupture; E78.5 Hyperlipidemia, unspecified; K57.90 Diverticulosis of intestine, part unspecified, without perforation or abscess without bleeding; R53.1 Weakness; R53.81 Other malaise; Z88.5 Allergy status to narcotic agent; Z85.3 Personal history of malignant neoplasm of breast; Z90.11 Acquired absence of right breast and nipple; K64.5 Perianal venous thrombosis
CPT/HCPCS: 36415; 74018; 80048; 80076; 83690; 85025; 85610; 87045; 87046; 87177; 87209; 87493; 89055; 93005; 96360; 96361; 97116; 97162; 97530; 99285; J7030